=== PATIENT | male | born 1985 | race Caucasian/White ===

== ENCOUNTER 2019-03-25 12:16 | Emergency (ER) | payer SELFPAY ==
[~2019-03-25] VITALS: Ht 167.6 cm; Wt 88.9 kg
[2019-03-25 12:24] VITALS: Ht 167.6 cm; Wt 88.9 kg
[2019-03-25 15:20] VITALS: BP 130/74
== END 2019-03-25 15:20 | disposition home or self-care (01) ==
LOC: ED 12:16
DX: S51.812A Laceration without foreign body of left forearm, initial encounter (principal); W26.8XXA Contact with other sharp object(s), not elsewhere classified, initial encounter; Y93.89 Activity, other specified; Y92.89 Other specified places as the place of occurrence of the external cause; Y99.8 Other external cause status
CPT/HCPCS: 90715; J0690; J2001